=== PATIENT | female | born 1970 ===

== ENCOUNTER 2023-06-22 05:05 | Day surgery (SDC) | payer OTHER ==
[2023-06-20 13:05] VITALS: BMI 31.4
[2023-06-22] MEDS ORDERED: IBUPROFEN 400 MG TABLET (FP) PO PRN (07:57)
[2023-06-22] MEDS ORDERED: ACETAMINOPHEN 325 MG TABLET (FP) PO PRN (07:57)
[2023-06-22] MEDS ORDERED: PROPOFOL 40 ML ONE (09:31)
[2023-06-22] MEDS ORDERED: FENTANYL CITRATE/PF 50 MCG/ML VIAL ONE ×2 (09:31→11:15)
[2023-06-22] MEDS ORDERED: DEXAMETHASONE SOD PHOSPHATE 4 MG/1 ML VIAL ONE (10:32)
[2023-06-22] MEDS ORDERED: ONDANSETRON 4 MG/2 ML VIAL ONE (10:32)
[2023-06-22] MEDS ORDERED: KETOROLAC TROMETHAMINE 30 MG/1 ML VIAL ONE (10:32)
[2023-06-22] MEDS ORDERED: oxyCODONE HCL 5 MG TABLET PO PRN (10:37)
[2023-06-22] MEDS ORDERED: LACTATED RINGERS SOLUTION 1,000 ML IV SCH (10:45)
[2023-06-22 13:26] VITALS: BP 133/77; PULSE 80; RESP 20; TEMP 98
== END 2023-06-22 13:43 | disposition home or self-care (01) ==
LOC: JASU-SURG 05:05
PROVIDERS: ATTEND Obstetrics & Gynecology
PROC: 0UPD8HZ Removal of Contraceptive Device from Uterus and Cervix, Via Natural or Artificial Opening Endoscopic (ICD-10-PCS; 2023-06-22)
PROC: 0UPD7HZ Removal of Contraceptive Device from Uterus and Cervix, Via Natural or Artificial Opening (ICD-10-PCS; 2023-06-22)
PROC: 0UB97ZZ Excision of Uterus, Via Natural or Artificial Opening (ICD-10-PCS; principal; 2023-06-22 09:00)
DX: D25.0 Submucous leiomyoma of uterus (principal); Z96.0 Presence of urogenital implants; N92.0 Excessive and frequent menstruation with regular cycle
CPT/HCPCS: 81025; 86850; 86900; 86901; 88300-TC; 88305-TC; 94760